=== PATIENT | male | born 1940 | race Caucasian/White ===

== ENCOUNTER 2025-04-14 23:18 | Emergency (ER) | payer OTHER, SELFPAY ==
[2025-04-14 23:26] VITALS: BP 185/68
[2025-04-15] VITALS: BP 174/68
[2025-04-15 00:06] LABS: Hematocrit 44.1 % (39.0-52.0); Hemoglobin 15.0 g/dL (13.0-18.0); Mean Corp Hgb Conc. 34.0 g/dL (33.0-37.0); Mean Corpuscular Volume 81.5 fL (80.0-94.0); Nucleated Red Blood Cells % 0 % (-); Platelet Count 146 10^3/uL (130-400); Red Cell Dist. Width 14.0 % (11.5-14.5)
[2025-04-15 00:14] LABS: ALT (SGPT) 24 U/L (0-50); AST (SGOT) 27 U/L (17-59); Albumin 4.5 g/dl (3.5-5.0); Alkaline Phosphatase 90 U/L (38-126); Blood Urea Nitrogen 26 mg/dl (9-20); Calcium 9.8 mg/dl (8.4-10.2); Carbon Dioxide 26 mmol/L (22-30); Chloride 104 mmol/L (98-107); Estimated Creatinine Clearance 60 ml/min; Glucose 148 mg/dl (70-99); Potassium 3.9 mmol/L (3.5-5.1); Sodium 139 mmol/L (135-145); Total Protein 7.4 g/dl (6.3-8.2); eGFR > 60.00
[2025-04-15] MEDS: ATIVAN 0.5 MG IV (00:28)
[2025-04-15 00:52] VITALS: BP 151/61
[2025-04-15 01:00] VITALS: BP 150/62
--- NOTE | 2025-04-15 01:28 | ED.GENMED ---
History of Present Illness
General
Chief Complaint: Blood Pressure Problem
Time Seen by Provider: 04/14/25 23:23
History of Present Illness
History of Present Illness:
Note:
CHIEF COMPLAINT(S)
Concerned about his blood pressure.
HISTORY OF PRESENT ILLNESS
The patient is an 85-year-old male with concerns over elevated. Over the past two months, he reports a series of falls, the most recent occurring today while he was in his home. The falls have resulted in him hitting his head multiple times. He
described an incident today where he was simply walking towards his bed and suddenly fell forward, landing on his abdomen on the bed. He denies any head injury today. Subsequently, he was able to adjust his position to reach his walking aids. The
patient reports experiencing dizziness and has noted that his blood pressure readings have been high. This fluctuation in blood pressure is concerning to him, although he has not frequently checked his blood pressure prior to recent events, except
for today, when he monitored it about eight times.
He denies any chest pain or shortness of breath. The patient acknowledges increased stress due to the passing of his spouse, to whom he was for fifty years, which coincides with the onset of his recent symptoms. He also reports feeling
shaky and experiencing sensations of electric-like nerve discomfort. He takes medication irregularly for hypertension but could not recall the specific names during the evaluation.
PAST MEDICAL AND SURGICAL HISTORY
The patient mentioned being previously diagnosed with dysmotility issues and diverticulitis. However, no further detail on past surgical history was provided.
Hypertension
Hyperlipidemia
CHRONIC MEDICAL CONDITIONS SIGNIFICANTLY AFFECTING CARE
The patient has a history of hypertension and diverticulitis, which may impact his current treatment and long-term management.
SOCIAL DETERMINANTS AFFECTING HEALTH
The patient has been experiencing significant stress due to the recent passing of his spouse, to whom he was for fifty years.
SOCIAL HISTORY
The patient mentioned that he had a secure family relationship, with two daughters who are nurses and a supportive granddaughter.
PHYSICAL EXAM
General: Alert, no acute distress.
Skin: Warm, dry.
Head: Normocephalic, atraumatic.
Neck: Supple, trachea midline.
Eye Ears, Nose, Mouth, and Throat: Oral mucosa moist.
Cardiovascular: Heart regular without murmur, normal peripheral perfusion, no edema.
Respiratory: Respirations are non-labored.
Gastrointestinal: Abdomen nondistended.
Back: Normal range of motion, normal alignment.
Musculoskeletal: Normal range of motion, normal strength.
Neurological: Alert and oriented to person, place, time, and situation; no focal neurological deficit observed.
Psychiatric: Cooperative, appropriate mood and affect.
PROBLEM LIST
Acute Problems:
1. Frequent falls
2. Dizziness
3. Headache
Chronic Problems:
1. Hypertension
2. Dysmotility issues
PLAN
1. Conduct laboratory tests to evaluate kidney function and electrolyte levels.
2. Monitor and evaluate the patients blood pressure.
3. Provide reassurance regarding current blood pressure levels not consistent with a hypertensive emergency.
4. Consider medication adjustment for hypertension and dizziness under close observation by primary care physician.
5. Assess and address stress-related factors impacting patient�s health, possibly considering supportive care or counseling.
6. Evaluate the home environment and fall risk factors with potential support from family, particularly the patients daughters who are in the healthcare field.
DIFFERENTIAL DIAGNOSIS
The Differential Diagnosis includes, in no particular order and is not limited to:
1. Orthostatic hypotension
2. Vestibular dysfunction
3. Hypertension-related dizziness
4. Anxiety or stress-related disorders
5. Cerebral vascular event (e.g., TIA)
6. Medication side effects or interactions
7. Benign paroxysmal positional vertigo (BPPV)
8. Dehydration
9. Cardiac arrhythmias
10. Electrolyte imbalance
Disposition:
SUMMARY OF ENCOUNTER
A 85-year-old male was evaluated in the emergency department due to concerns about high blood pressure. Upon evaluation, his blood pressure decreased to 150/62 mmHg. The patient appeared well and was asymptomatic during the visit. Initial lab
results, including CBC and CMP, returned normal. 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 The patient was advised to follow up with his primary care physician for further
chronic management of his blood pressure.
ASSESSMENT
High blood pressure in a pediatric patient with EKG findings of right bundle branch block and left anterior fascicular block.
PLAN
The plan is for the patient to follow up with his primary care physician to continue chronic management of his blood pressure. There are no acute concerns necessitating emergency treatment at this time, as the patient is asymptomatic with decreased
blood pressure upon evaluation.
INDEPENDENT REVIEW OF LABS AND INTERPRETATION OF TESTS
My independent review of CBC is normal.
My independent review of CMP is normal.
My independent interpretation of the EKG shows right bundle branch block and left anterior fascicular block with no acute ischemic changes.
FOLLOW-UP INSTRUCTIONS
The patient is to follow up with his primary care physician for further chronic management of his blood pressure.
MEDICAL DECISION MAKING
- Complexity of Data Reviewed: Chronic conditions affecting care: Hypertension.
Differential Diagnosis includes, in no particular order and is not limited to: Orthostatic hypotension, vestibular dysfunction, hypertension-related dizziness, anxiety or stress-related disorders, cerebral vascular event (e.g., TIA), medication side
effects or interactions, benign paroxysmal positional vertigo (BPPV), dehydration, cardiac arrhythmias, and electrolyte imbalance.
- Data:
Category 1
Non-emergency department records reviewed. External record: Reviewed CBC and CMP results.
Category 2
My independent interpretation of the EKG shows right bundle branch block and left anterior fascicular block with no acute ischemic changes.
- Risk:
Consideration of Admission/Observation: Escalation of care including admission/observation was considered given the complexity and risk of the patients presenting complaint, exam findings, and/or their underlying comorbidities. However, ultimately I
feel the patient is safe for outpatient management with close follow-up. Reasoning: Work-up reassuring, does not reveal any acute life/organ-threatening processes, patients symptoms well controlled upon reevaluation, reexamination is reassuring,
vitals are stable, patient is agreeable with discharge, and reliable for follow-up.
DIAGNOSIS
Elevated Blood Pressure, Pediatric - ICD-10-CM R03.0
Past History
Past History
ED Past Medical History: HTN, Hypercholesterolemia and IDDM
ED Past Surgical History: Appendectomy and Cholecystectomy
Social History
Tobacco: Non-smoker
Alcohol: None
Drug: None
Personal:
Living: with family
Phy Exam
Physical Exam
Physical Exam:
.
Course
Orders/Labs/Results
Orders:
Orders
04/14/25 23:33
EKG [Electrocardiogram (*1)] Urgent
Reason for Study: Hypertension, Benign
EKG- Treatment ONCE
04/14/25 23:42
Complete Blood Count/With Diff Urgent
Comprehensive Metabolic Panel Urgent
04/15/25 00:00
Lorazepam [Ativan] 0.5 mg IV NOW STA
Abnormal Lab Results
04/14/25
23:42
MPV 10.5 H fL
(7.4-10.4)
BUN 26 H mg/dl
(9-20)
Glucose 148 H mg/dl
(70-99)
04/14/25 23:42
04/14/25 23:42
Vital Signs
Initial and Last Documented VS:
Initial Vital Signs
Temp Pulse Resp BP Pulse Ox
98.3 F 84 20 185/68 98
04/14/25 23:26 04/14/25 23:26 04/14/25 23:26 04/14/25 23:26 04/14/25 23:26
Last Documented Vital Signs
Temp Pulse Resp BP Pulse Ox
98.3 F 73 20 150/62 98
04/14/25 23:26 04/15/25 01:15 04/15/25 01:25 04/15/25 01:00 04/15/25 01:15
*Pulse Oximetry
SaO2: 98
Oxygen Mode of Delivery: Room air
Patient hypoxic: no
*EKG
Interpreted by ED Provider?: Yes
Interpretation: abnormal
Rate: normal
Rhythm: sinus
[place]: left axis deviation
QRS Pattern: right bundle branch block
Ischemia: non-specific ST changes
*Linux Consultant Interpretation
Rate: normal
Interpretation: normal
Rhythm: sinus
*Critical Care Note
Total Time (30-74mins, 75-104mins- exclusive of procedures): Not Applicable
ED Attending Note
-
Portions of this chart may have been created with voice recognition software.� Occasional wrong word or��sound alike� substitutions may have occurred due to the inherent limitations of voice recognition software.
Discharge Plan
Departure
Patient Disposition: Home (Routine Discharge)
Date of Disposition: 04/15/25
Time of Disposition: 01:29
Patient with high blood pressure during this ER visit?: Yes
Discharge Problem:
Uncontrolled hypertension
Instructions: High Blood Pressure (DC), BLOOD PRESSURE
Referrals:
Donna Wiley MD [Family Provider, Family Practice]
Activity Restrictions/Additional Instructions:
Your blood pressure was elevated while in the Emergency Department, please have your doctor re-evaluate it in the next 48 hours as untreated hypertension may lead to serious complications.
Return immediately for chest pain, shortness of breath, weakness of any kind, or any other concerns.
Interventions
Interventions:
*Risk Screen - Suicide Last Done: 04/14/25 23:26
*General Assessment Last Done: 04/14/25 23:26
*Neglect/Abuse Screening Last Done: 04/14/25 23:26
*ED COVID-19 Vaccine History Last Done: 04/14/25 23:26
*ED Influenza Vaccine History Last Done: 04/14/25 23:26
[facility] Fall Risk Assessment Tool Last Done: 04/14/25 23:19
ED- Cardiac Assessment Last Done: 04/14/25 23:59
ED- Neurological Assessment Last Done: 04/14/25 23:59
ED- Pulmonary Assessment Last Done: 04/14/25 23:59
Discharge Date and Time
Print Language: UPPER SORBIAN
[2025-04-15 02:00] VITALS: BP 148/64
== END 2025-04-15 03:13 | disposition home or self-care (01) ==
LOC: EMR 23:18
PROVIDERS: EMERGENCY PHYSICIAN Emergency Medicine; FAMILY PHYSICIAN Family Medicine
DX: I10 Essential (primary) hypertension (principal); E78.00 Pure hypercholesterolemia, unspecified; E11.9 Type 2 diabetes mellitus without complications; R42 Dizziness and giddiness; Z91.81 History of falling; Z63.4 Disappearance and death of family member
CPT/HCPCS: 96374; 99284; 80053; 85025; 93005

== ENCOUNTER 2025-04-18 21:32 | Observation (INO) | payer OTHER, SELFPAY ==
[2025-04-18] VITALS (7 sets, daily range): BP systolic 159–198; BP diastolic 59–81; PULSE 78–81; BMI 34.5
[2025-04-18 14:23] LABS: Hematocrit 43.1 % (39.0-52.0); Hemoglobin 14.7 g/dL (13.0-18.0); Mean Corp Hgb Conc. 34.1 g/dL (33.0-37.0); Mean Corpuscular Volume 83.0 fL (80.0-94.0); Nucleated Red Blood Cells % 0 % (-); Platelet Count 153 10^3/uL (130-400); Red Cell Dist. Width 14.1 % (11.5-14.5)
[2025-04-18 14:43] LABS: ALT (SGPT) 23 U/L (0-50); AST (SGOT) 25 U/L (17-59); Albumin 4.4 g/dl (3.5-5.0); Alkaline Phosphatase 86 U/L (38-126); Blood Urea Nitrogen 26 mg/dl (9-20); Calcium 9.4 mg/dl (8.4-10.2); Carbon Dioxide 26 mmol/L (22-30); Chloride 103 mmol/L (98-107); Glucose 134 mg/dl (70-99); Potassium 4.0 mmol/L (3.5-5.1); Sodium 137 mmol/L (135-145); Total Protein 7.2 g/dl (6.3-8.2); eGFR > 60.00
[2025-04-18 18:44] LABS: Urine Character Clear (Clear)
--- NOTE | 2025-04-18 19:10 | ED.GENMED ---
History of Present Illness
General
Chief Complaint: Weakness
Source: patient
Time Seen by Provider: 04/18/25 17:49
History of Present Illness
History of Present Illness:
85-year-old male presents for evaluation of progressively worsening weakness. He was here several days ago for similar symptoms. He states the weakness got worse. He sat down to go to the bathroom earlier today and was unable to stand up. He
lives at home by himself. He denies any significant pain. 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 He is diabetic. He is not anticoagulated. There has been no injuries. He denies fevers or new shortness of breath. No other complaints
at this time
Past History
Past History
ED Past Medical History: HTN, Hypercholesterolemia and IDDM
ED Past Surgical History: Appendectomy and Cholecystectomy
Social History
Tobacco: Non-smoker
Alcohol: None
Drug: None
Personal:
Living: with family
Phy Exam
Physical Exam
Physical Exam:
General: Well-appearing male no acute respiratory distress
HEENT: Normal cephalic atraumatic
Heart: Regular rate and rhythm
Lungs: Clear no wheeze
Abdomen is soft nontender
Extremities: No cyanosis
Skin warm no rash
Course
Orders/Labs/Results
Orders:
Orders
04/18/25 14:13
Complete Blood Count/With Diff Urgent
Comprehensive Metabolic Panel Urgent
04/18/25 18:15
Case Management Consult ONCE
Case Management Consult: VN/Home Care
CR Chest - 2 Views Urgent
Comment:
Reason For Exam: weakness
04/18/25 18:16
Orthostatic VS- Treatment ONCE
04/18/25 18:29
COVID-19 Antigen Urgent
Source: Nasal Swab
Urinalysis Reflex To Culture Urgent
Date Specimen was Collected: 04/18/25
Time Specimen was Collected: 18:24
Urine Microscopic Reflex Cult Urgent
Influenza A+B Rapid Molecular Urgent
DEEP Source: Nasal Swab
Specimen Description:
Abnormal Lab Results
04/18/25 04/18/25
14:13 18:29
Absolute Lymphs (auto) 0.9 L 10^3/uL
(1.2-3.4)
Neutrophils % 78.7 H %
(42.2-75.2)
Lymphocytes % 12.5 L %
(20.5-51.1)
BUN 26 H mg/dl
(9-20)
Glucose 134 H mg/dl
(70-99)
Urine Ketones 3+ A
(Negative)
Urine Bacteria (Reflex) Few A
(Negative)
Urine Glucose 3+ A
(Negative)
Urine Albumin (Reflex) 2+ A
(Neg - Trace)
04/18/25 14:13
04/18/25 14:13
Vital Signs
Initial and Last Documented VS:
Initial Vital Signs
Temp Pulse Resp BP Pulse Ox
98.0 F 83 16 183/76 98
04/18/25 14:05 04/18/25 14:05 04/18/25 14:05 04/18/25 14:05 04/18/25 14:05
Last Documented Vital Signs
Temp Pulse Resp BP Pulse Ox
98.0 F 81 20 159/70 99
04/18/25 14:05 04/18/25 19:00 04/18/25 19:00 04/18/25 19:00 04/18/25 19:12
MDM/Problems Addressed
Differential Diagnosis Includes:
Patient here with progressively worsening weakness unable to stand off the toilet today. Lives by himself at home. Consider general deconditioning versus anemia versus electrolyte abnormality versus infectious source. Will check COVID flu chest
x-ray urinalysis and labs.
*Pulse Oximetry
SaO2: 99
Oxygen Mode of Delivery: Room air
Patient hypoxic: no
*Critical Care Note
Total Time (30-74mins, 75-104mins- exclusive of procedures): Not Applicable
Update Note
Update Note:
Expanded workup here to evaluate for source of weakness including chest x-ray COVID flu urinalysis. No overwhelming findings on workup however patient unfit for discharge secondary to profound weakness. He lives by himself. Will admit to hospital
for case management and physical therapy involvement.
ED Attending Note
-
Portions of this chart may have been created with voice recognition software.� Occasional wrong word or��sound alike� substitutions may have occurred due to the inherent limitations of voice recognition software.
Discharge Plan
Departure
Patient Disposition: Admit
Date of Disposition: 04/18/25
Time of Disposition: 20:01
Presentation/result/management discussed w/ accepting MD/DO: Hospitalist
Discharge Problem:
Weakness
Referrals:
Donna Wiley MD [Family Provider, Family Practice]
Interventions
Interventions:
*Risk Screen - Suicide Last Done: 04/18/25 14:07
*General Assessment Last Done: 04/18/25 14:07
*Neglect/Abuse Screening Last Done: 04/18/25 14:07
*ED COVID-19 Vaccine History Last Done: 04/18/25 14:07
*ED Influenza Vaccine History Last Done: 04/18/25 14:07
[facility] Fall Risk Assessment Tool Last Done: 04/18/25 17:36
ED- Cardiac Assessment Last Done: 04/18/25 19:23
ED- Neurological Assessment Last Done: 04/18/25 19:23
ED- Pulmonary Assessment Last Done: 04/18/25 19:23
Discharge Date and Time
Print Language: NAURUAN
[2025-04-18 19:27] LABS: COVID-19 Antigen Negative (Negative)
[2025-04-18 19:45] LABS: Urine Red Blood Cell 0-2 /HPF (0-2); Urine White Cell 0-2 /HPF (0-5)
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
[2025-04-18] MEDS: LOW STRENGTH ASPIRIN 81 MG PO (22:22)
[2025-04-18] MEDS: ZOLOFT 25 MG PO (22:22)
[2025-04-19] VITALS (8 sets, daily range): BP systolic 120–189; BP diastolic 63–85; PULSE 82; O2SAT 99; BMI 34.5
[2025-04-19 05:30] LABS: Hematocrit 43.1 % (39.0-52.0); Hemoglobin 14.3 g/dL (13.0-18.0); Mean Corp Hgb Conc. 33.2 g/dL (33.0-37.0); Mean Corpuscular Volume 84.2 fL (80.0-94.0); Platelet Count 148 10^3/uL (130-400); Red Cell Dist. Width 14.1 % (11.5-14.5)
[2025-04-19 05:54] LABS: Blood Urea Nitrogen 20 mg/dl (9-20); Calcium 9.1 mg/dl (8.4-10.2); Carbon Dioxide 27 mmol/L (22-30); Chloride 107 mmol/L (98-107); Estimated Creatinine Clearance 76 ml/min; Glucose 126 mg/dl (70-99); Potassium 3.9 mmol/L (3.5-5.1); Sodium 138 mmol/L (135-145); eGFR > 60.00
[2025-04-19 08:26] LABS: Glucose - Point of Care 221 mg/dl (70-99)
--- NOTE | 2025-04-19 08:38 | W.PN.HOSP.TC ---
Today's Communication/Plan
-
d/c
Assessment / Plan
Assessment / Plan
Gen: NAD, AAOx3.
Eyes: EOMI, PERRLA, no scleral icterus.
Neck: supple.
CV: RRR, +S1/S2, no m/r/g.
Resp: CTAB, no rales, wheezes, or rhonchi.
Abd: +BS, soft, NT, ND
Skin: No rashes.
Neuro: CN 2-12 intact, non-focal.
Psych: Normal mood and affect.
CT brain: No evidence of acute intracranial abnormality. Chronic changes as described.
CXR: The lungs appear clear radiographically. Top normal cardiac silhouette size with no evidence for pulmonary edema or pleural effusion.
Weakness:
-due to deconditioning and exacerbated by obesity due to excess calories
-PT eval
Other problems:
Essential HTN: cont Norvasc/Lisinopril/Lasix
DM2: cont glyburide/Jardiance, SSI/accuchecks, diabetic diet
DNR/Lovenox
Medically cleared for d/c, case management aware.
Total time spent on d/c = 31 min. This included today's physical exam, progress note, review of laboratory and diagnostic data, preparation of discharge documents and prescriptions, and discussions about the pt's hospital course and discharge plan
with the patient and other bilingual medical receptionist involved in the patient's care.
Anticipated Discharge: Today
Subjective/Interval History
-
Date of Service: April 19, 2025
No new complaints.
Objective Data
-
Labs:
Laboratory Results
04/19/25
05:15
WBC 6.7
Hgb 14.3
Hct 43.1
Plt Count 148
Sodium 138
Potassium 3.9
Chloride 107
Carbon Dioxide 27
BUN 20
Creatinine 0.8
Glucose 126 H
Calcium 9.1
Vital Signs:
Vital Signs
Temp Pulse Resp BP Pulse Ox
97.8 F 78 23 149/65 92
04/18/25 22:20 04/19/25 00:30 04/19/25 00:30 04/19/25 00:00 04/19/25 00:15
I&O
04/18/25 04/19/25 04/20/25
06:59 06:59 06:59
Intake Total 240 / 240
Output Total 580 / 580
Balance -340 / -340
--- NOTE | 2025-04-19 08:47 | CM ---
Chart reviewed. Erendira reviewed with patient
Spoke with patient at ED bedside
Pt lives in [address] alone
His on hospice
[address] He is able to walk with a walker and drives
He has a dtr in [place] and granddtr in-law helping twice a week 5 hours for cleaning
He is planning to get more help at home and he is familiar with how to get private aides . He used them for his
PCP Dr. Kehinde Wiley
[facility]
no hx oVN nor SNF
DCP is to go home with HHC
Dr. Escalona made aware
He declined to go to SNF
DCP is to go home with HHC and he is agreeable with VN.
CM will continue to follow up for dcp needs
--- NOTE | 2025-04-19 08:59 | CM ---
VN referral sent to Bonnie at [facility]
[2025-04-19] MEDS: GLYNASE 6 MG PO (09:17)
[2025-04-19] MEDS: LASIX 20 MG PO (09:17)
[2025-04-19] MEDS: ZESTRIL 10 MG PO (09:18)
[2025-04-19] MEDS: NORVASC 5 MG PO (09:18)
[2025-04-19] MEDS: FARXIGA 10 MG PO (09:19)
[2025-04-19 10:07] LABS: Glucose - Point of Care 162 mg/dl (70-99)
--- NOTE | 2025-04-19 12:00 | PTCARENOTE ---
pt admitted from ED holds to room 1147. pt pulled over from stretcher to bed. Pt AAOx3, very forgetful and anxious. pt oriented to room and unit. pt updated on plan of care. pt for SNF placement
--- NOTE | 2025-04-19 13:19 | VNURNOTE ---
Chart reviewed. Rec'ed update from NALINI Cochran that pt choosing to DC to SNF now.
No referral placed for VN.
Will continue to remain available if plans change.
[2025-04-19 13:40] LABS: Glucose - Point of Care 153 mg/dl (70-99)
[2025-04-19] MEDS: NOVOLOG FLEXPEN 12 UNITS SC (14:27)
--- NOTE | 2025-04-19 14:37 | CM ---
Addendum entered by Jolynn Lozada 04/19/25 15:17:
Davis fuchs pending ; ref # [id number]
Original Note:
Pt is accepted by [facility]
To call report
[2025-04-19] MEDS: LOVENOX 40 MG SC (17:33)
[2025-04-19 17:58] LABS: Glucose - Point of Care 144 mg/dl (70-99)
[2025-04-19] MEDS: ATIVAN 0.5 MG PO (21:04)
[2025-04-19] MEDS: LOW STRENGTH ASPIRIN 81 MG PO (21:04)
[2025-04-19] MEDS: ZOLOFT 25 MG PO (21:04)
[2025-04-19 21:18] LABS: Glucose - Point of Care 209 mg/dl (70-99)
[2025-04-20 00:42] LABS: Glucose - Point of Care 120 mg/dl (70-99)
[2025-04-20 03:57] VITALS: BMI 32.9
[2025-04-20] MEDS: ATIVAN 0.5 MG PO (04:42)
--- NOTE | 2025-04-20 08:13 | W.PN.HOSP.TC ---
Today's Communication/Plan
-
See bold
Assessment / Plan
Assessment / Plan
Gen: NAD, AAOx3.
Eyes: EOMI, PERRLA, no scleral icterus.
Neck: supple.
CV: Remains RRR, +S1/S2, no m/r/g.
Resp: Remain CTAB, no rales, wheezes, or rhonchi.
Abd: Remains +BS, soft, NT, ND
Skin: No rashes.
Neuro: CN 2-12 intact, non-focal.
Psych: Normal mood and affect.
CT brain: No evidence of acute intracranial abnormality. Chronic changes as described.
CXR: The lungs appear clear radiographically. Top normal cardiac silhouette size with no evidence for pulmonary edema or pleural effusion.
Weakness:
-due to deconditioning and exacerbated by obesity due to excess calories
-PT eval
Other problems:
Essential HTN: cont Norvasc/Lisinopril/Lasix
DM2: cont glyburide/Jardiance, SSI/accuchecks, diabetic diet
DNR/Lovenox
Remains medically cleared for d/c, case management aware.
Anticipated Discharge: Today
Subjective/Interval History
-
Date of Service: April 20, 2025
Reports some nausea. Otherwise no new complaints.
Objective Data
-
Vital Signs:
Vital Signs
Temp Pulse Resp BP Pulse Ox
98.3 F 95 20 154/68 97
04/19/25 23:08 04/19/25 15:11 04/19/25 23:08 04/19/25 23:08 04/19/25 23:08
I&O
04/19/25 04/20/25 04/21/25
06:59 06:59 06:59
Intake Total 240 / 240 720 / 720
Output Total 580 / 580 500 / 500
Balance -340 / -340 220 / 220
[2025-04-20 08:18] VITALS: BP 124/79
[2025-04-20 08:22] LABS: Glucose - Point of Care 117 mg/dl (70-99)
[2025-04-20] MEDS: ZESTRIL 10 MG PO (08:33)
[2025-04-20] MEDS: GLYNASE 6 MG PO (08:33)
[2025-04-20] MEDS: FARXIGA 10 MG PO (08:33)
[2025-04-20] MEDS: NORVASC 5 MG PO (08:34)
[2025-04-20] MEDS: LASIX 20 MG PO (08:34)
[2025-04-20] MEDS: NOVOLOG FLEXPEN 12 UNITS SC ×3 (09:23→17:27)
--- NOTE | 2025-04-20 11:33 | CM ---
Auth still pending. TC to [employer], requesting status and to see if case could be expedited.
[2025-04-20 11:48] LABS: Glucose - Point of Care 236 mg/dl (70-99)
--- NOTE | 2025-04-20 13:36 | CM ---
Addendum entered by Nelly Mtz RN 04/20/25 16:10:
Call placed to Silvia at [facility] to check on status of auth. Per Silvia auth just came back and is approved through 04/25 with a next review date of 04/26. SNF should fax clinical to [phone] for concurrent review. Please give SNF Silvia's number
at [phone]. Auth number is same as pending auth number. Update to
Original Note:
Call placed to Silvia from [facility] at [phone] to check status of this auth. Per Silvia auth is currently being reviewed by the [employer] Manager. She believes there will be a determination today. Made her aware of our bed hold situation and need
to facilitate discharges. Update to .
[2025-04-20 15:28] VITALS: BP 104/52
--- NOTE | 2025-04-20 16:25 | CM ---
Spoke with Vivian at [facility] provided ref number and [employer] contact info
Please call report to [facility]
[phone]
fax number [phone]
Transport scheduled with acute care via stretcher at 19:30 pm
--- NOTE | 2025-04-20 16:59 | W.DCSUMMARY ---
Discharge Summary
Discharge Data
Date of Admission: 04/18/25
Date of Discharge: 04/20/25
-
Pending Results: No
Hospital Course
Primary diagnoses:
weakness due to deconditioning
Secondary diagnoses:
Obesity due to excess calories
Essential hypertension
Type 2 diabetes mellitus
Consultants:
None
Imaging:
CT brain: No evidence of acute intracranial abnormality. Chronic changes as described.
CXR: The lungs appear clear radiographically. Top normal cardiac silhouette size with no evidence for pulmonary edema or pleural effusion.
Hospital course: 85-year-old male who presented with a chief complaint of weakness as outlined in the H&P done on admission. Patient had an unremarkable workup in the ER. He was admitted for placement. He was seen in consultation by physical
therapy and is being discharged in medically stable condition to a senior care facility.
Discharge Plan
-
Patient Disposition: Fdc/SNF
Discharge Diagnosis/Procedures: weakness due to deconditioning
Condition: Good
Diet: Diabetic, Carb Controlled
Activity: As tolerated
Driving Restrictions: Not until seen by your Dr
Referrals:
Donna Wiley MD [Family Provider, [facility]] - in less than 1 week
Prescriptions:
Continued
amlodipine [Norvasc] 5 mg Tablet
5 mg PO DAILY
lisinopril 10 mg Tablet
10 mg PO DAILY
furosemide [Lasix] 20 mg Tablet
20 mg PO DAILY
insulin aspart U-100 [Novolog FlexPen U-100 Insulin] 100 unit/mL (3 mL) Insulin Pen
11 sliding scale dose SC AC
liraglutide 0.6 mg/0.1 mL (18 mg/3 mL) Pen Injector
1.8 mg SC DAILY
Jardiance 10 mg Tablet
10 mg PO DAILY
glyburide micronized 6 mg Tablet
6 mg PO DAILY
sertraline 25 mg Tablet
25 mg PO HS
aspirin 81 mg Tablet
81 mg PO HS
Discharge Orders:
Discharge Patient (As Directed); Ordered 04/19/25
Ordered By: Ryder Escalona
Discharge Date and Time
Print Language: PRYDEINIG
[2025-04-20 17:19] LABS: Glucose - Point of Care 147 mg/dl (70-99)
[2025-04-20] MEDS: LOVENOX 40 MG SC (17:27)
--- NOTE | 2025-04-20 18:29 | PTCARENOTE ---
report called to [facility]- transport pickup for 193
[2025-04-20 20:10] VITALS: BP 112/53
== END 2025-04-20 21:32 ==
LOC: 1 ACUTE 21:32
PROVIDERS: Physician Assistant; ADMITTING PHYSICIAN Internal Medicine; ATTENDING PHYSICIAN Internal Medicine; EMERGENCY PHYSICIAN Emergency Medicine; FAMILY PHYSICIAN Family Medicine
DX: R53.1 Weakness (principal); I10 Essential (primary) hypertension; E66.01 Morbid (severe) obesity due to excess calories; Z68.32 Body mass index [BMI] 32.0-32.9, adult; E11.40 Type 2 diabetes mellitus with diabetic neuropathy, unspecified; Z66 Do not resuscitate; Z11.52 Encounter for screening for COVID-19; Z79.899 Other long term (current) drug therapy
CPT/HCPCS: 70450; 71046; 80048; 80053; 81003; 81015; 82962; 85025; 85027; 87502; 87811; 93005; 97163; 99285; G0378